=== PATIENT | male | born 1935 | race Caucasian/White ===

== ENCOUNTER 2018-04-15 16:45 | Emergency (ER) | payer MEDICARE, BC ==
[~2018-04-15] VITALS: Ht 175.3 cm; Wt 85.0 kg
[2018-04-15 16:52] VITALS: BP 197/109; PULSE 70; RESP 22; TEMP 97.6; O2SAT 96
[2018-04-15] MEDS ORDERED: LEVO25TA4 PO (17:13)
[2018-04-15] MEDS ORDERED: SIMV5TAB3 PO (17:13)
[2018-04-15] MEDS ORDERED: blood pressure med (17:13)
[2018-04-15] MEDS ORDERED: BUPR75TA PO (17:13)
--- NOTE | 2018-04-15 17:15 | PD ---
HPI Chief Complaint: Respiratory Symptoms Time Seen by Provider: 16:58 Travel History International Travel<30 days: No Contact w/Intl Traveler<30days: No Traveled to known affect area: No History of Present Illness HPI 82 y/o male presents with coughing up blood today. He states he has had a couple episodes of about quarter size amount. He denies prior history of this. He states that he is visiting from [place]. He denies any associated symptoms. Quality is bright red. Severity is couple episodes. He denies specific modifying factors. PFSH Past Medical History Narrative Medical Hypertension, hypercholesterol, prostate cancer in remission Past Surgical History Narrative Surgical Prostate cancer Social History Tobacco Use: No Allergies-Medications (Allergen,Severity, Reaction): Coded Allergies: No Known Allergies (Unverified , 04/15/18) Reported Meds & Prescriptions Reported Meds & Active Scripts Active Reported Bupropion HCl 75 Mg Tab Unknown Dose PO BID [blood pressure med] Simvastatin 5 Mg Tab Unknown Dose PO DAILY Levothyroxine (Levothyroxine Sodium) 25 Mcg Tab Unknown Dose PO DAILY Review of Systems Except as stated in HPI: all other systems reviewed are Neg Physical Exam Narrative GENERAL: 82-year-old male in no apparent distress SKIN: Focused skin assessment warm/dry. HEAD: Atraumatic. Normocephalic. EYES: Pupils equal and round. No scleral icterus. No injection or drainage. ENT: No nasal bleeding or discharge. Mucous membranes pink and moist. NECK: Trachea midline. No JVD. CARDIOVASCULAR: Regular rate and rhythm. No murmur appreciated. RESPIRATORY: No accessory muscle use. Clear to auscultation. Breath sounds equal bilaterally. GASTROINTESTINAL: Abdomen soft, non-tender, nondistended. Hepatic and splenic margins not palpable. MUSCULOSKELETAL: No obvious deformities. No clubbing. No cyanosis. No edema. NEUROLOGICAL: Awake and alert. No obvious cranial nerve deficits. Motor grossly within normal limits. Normal speech. PSYCHIATRIC: Appropriate mood and affect; insight and judgment normal. Data Data Last Documented VS Vital Signs Date Time Temp Pulse Resp B/P (MAP) Pulse Ox O2 Delivery O2 Flow Rate FiO2 04/15/18 16:52 97.6 70 22 197/109 (138) 96 Orders Orders Complete Blood Count With Diff (04/15/18 16:58) Basic Metabolic Panel (Bmp) (04/15/18 16:58) Act Partial Throm Time (Ptt) (04/15/18 16:58) Prothrombin Time / Inr (Pt) (04/15/18 16:58) Iv Access Insert/Monitor (04/15/18 16:58) Ecg Monitoring (04/15/18 16:58) Oximetry (04/15/18 16:58) Chest, Pa & Lat (04/15/18 16:58) Ct Pulmonary Angiogram (04/15/18 ) Iohexol 350 Inj (Omnipaque 350 Inj) (04/15/18 18:52) Ed Discharge Order (04/15/18 19:01) Labs Laboratory Tests Test 04/15/18 17:15 White Blood Count 8.7 TH/MM3 Red Blood Count 4.95 MIL/MM3 Hemoglobin 15.3 GM/DL Hematocrit 45.3 % Mean Corpuscular Volume 91.4 FL Mean Corpuscular Hemoglobin 30.9 PG Mean Corpuscular Hemoglobin Concent 33.8 % Red Cell Distribution Width 13.9 % Platelet Count 292 TH/MM3 Mean Platelet Volume 8.8 FL Neutrophils (%) (Auto) 74.2 % Lymphocytes (%) (Auto) 14.2 % Monocytes (%) (Auto) 8.8 % Eosinophils (%) (Auto) 2.1 % Basophils (%) (Auto) 0.7 % Neutrophils # (Auto) 6.5 TH/MM3 Lymphocytes # (Auto) 1.2 TH/MM3 Monocytes # (Auto) 0.8 TH/MM3 Eosinophils # (Auto) 0.2 TH/MM3 Basophils # (Auto) 0.1 TH/MM3 CBC Comment DIFF FINAL Differential Comment Prothrombin Time 10.0 SEC Prothromb Time International Ratio 1.0 RATIO Activated Partial Thromboplast Time 27.6 SEC Blood Urea Nitrogen 20 MG/DL Creatinine 1.04 MG/DL Random Glucose 93 MG/DL Calcium Level 8.5 MG/DL Sodium Level 139 MEQ/L Potassium Level 4.1 MEQ/L Chloride Level 103 MEQ/L Carbon Dioxide Level 27.6 MEQ/L Anion Gap 8 MEQ/L Estimat Glomerular Filtration Rate 68 ML/MIN MDM Medical Decision Making Medical Screen Exam Complete: Yes Emergency Medical Condition: Yes Medical Record Reviewed: Yes (Past history confirmed) Interpretation(s) CBC & BMP Diagram 04/15/18 17:15 Calcium Level 8.5 Last 24 hours Impressions Chest X-Ray 04/15/18 1658 Signed Impressions: CONCLUSION: No acute cardiopulmonary findings identified. CT Angiography 04/15/18 0000 Signed Impressions: CONCLUSION: 1. No evidence of pulmonary embolism. 2. Nonspecific 3 mm pulmonary nodule posterior right upper lung. Recommend a f ollow-up noncontrast CT thorax in 6 months to check stability. Differential Diagnosis PE, pneumonia, bronchiectasis Narrative Course We will check blood work, chest x-ray, CT and reevaluate ED workup no emergent, patient given copy of CT report for outpatient pulmonary nodule follow-up. No further hemoptysis here. Patient denies any new complaints and states that they are feeling better. Patient happy with care, all questions answered. Patient knows that follow up is incumbent on them and to return to the emergency room immediately if new or worsening symptoms develop. Patient given strict return precautions, vitals reviewed and are normal , agrees to further workup as an outpatient. Diagnosis Primary Impression: Hemoptysis Additional Impression: Pulmonary nodule Patient Instructions: General Instructions Additional Instructions: return as needed, follow with primary this week Med/Other Pt SpecificInfo: No Change to Meds Disposition: 01 DISCHARGE HOME Condition: Stable Annette Jacob MD April 15, 2018 17:15
[2018-04-15 17:45] LABS: AUTOMATED NEUTROPHIL # 6.5 TH/MM3 (1.8-7.7); BASOPHIL # 0.1 TH/MM3 (0-0.2); BASOPHIL % 0.7 % (0.0-2.0); EOSINOPHIL # 0.2 TH/MM3 (0-0.4); EOSINOPHIL % 2.1 % (0.0-4.0); HEMATOCRIT 45.3 % (39.0-51.0); HEMOGLOBIN 15.3 GM/DL (13.0-17.0); LYMPH % 14.2 % (9.0-44.0); LYMPHOCYTE # 1.2 TH/MM3 (1.0-4.8); MEAN CELL VOLUME 91.4 FL (80.0-100.0); MEAN CORPUSCULAR HEMOGLOBIN 30.9 PG (27.0-34.0); MEAN CORPUSCULAR HGB CONC 33.8 % (32.0-36.0); MEAN PLATELET VOLUME 8.8 FL (7.0-11.0); MONO % 8.8 % (0.0-8.0); MONOCYTE # 0.8 TH/MM3 (0-0.9); NEUT % 74.2 % (16.0-70.0); PLATELET COUNT 292 TH/MM3 (150-450); RED BLOOD COUNT 4.95 MIL/MM3 (4.50-5.90); RED CELL DISTRIBUTION WIDTH 13.9 % (11.6-17.2); WHITE BLOOD COUNT 8.7 TH/MM3 (4.0-11.0)
--- NOTE | 2018-04-15 17:58 | RADRPT ---
EXAM DATE: 04/15/2018 5:44 PM EDT AGE/SEX: 82 years / Male INDICATIONS: Coughing blood. Short of breath. CLINICAL DATA: This is the patient's initial encounter. Patient reports that signs and symptoms have been present for 1 day and indicates a pain score of 3/10. MEDICAL/SURGICAL HISTORY: None. None. COMPARISON: No prior [place] exams available for comparison. FINDINGS: PA and lateral views of the chest demonstrate the lungs to be symmetrically aerated without evidence of mass, infiltrate or effusion. The cardiomediastinal contours are unremarkable. Osseous structures are intact. CONCLUSION: No acute cardiopulmonary findings identified. Electronically signed by: David Meza MD 04/15/2018 5:56 PM EDT
[2018-04-15 18:04] LABS: BICARBONATE 27.6 MEQ/L (21.0-32.0); CALCIUM 8.5 MG/DL (8.5-10.1); CREATININE 1.04 MG/DL (0.60-1.30)
[2018-04-15] MEDS ORDERED: IOHEXOL 350 MG/ML 10 ML VIAL (for RAD DIAG) IVCONTRAST ONE (18:52)
--- NOTE | 2018-04-15 18:58 | RADRPT ---
EXAM DATE: 04/15/2018 6:53 PM EDT AGE/SEX: 82 years / Male INDICATIONS: Coughing up blood. CLINICAL DATA: This is the patient's initial encounter. Patient reports that signs and symptoms have been present for 1 day and indicates a pain score of 2/10. MEDICAL/SURGICAL HISTORY: None. None. RADIATION DOSE: 9.97 CTDI (mGy) COMPARISON: No prior [place] exams available for comparison. TECHNIQUE: Volumetric scanning was performed using a multi-row detector CT scanner during bolus infu earnest of 73 ml Omnipaque 350 (iohexol) nonionic water-soluble contrast as a single exam dose. The maikel a was post processed with a variety of visualization algorithms including full volume maximum intensi ty projection and sliding thin slab reformation. Using automated exposure control and adjustment of the mA and/or kV according to patient size, radiation dose was kept as low as reasonably achievable t o obtain optimal diagnostic quality images. FINDINGS: Pulmonary Arteries: No filling defects are seen in the pulmonary arteries out to the subsegmental ve ssels. The left and right pulmonary arteries are normal in diameter. Lung: No infiltrates seen. There is a tiny 3 mm pulmonary nodule in the posterior right upper lung. Effusion: None. Mediastinum: No evidence of mediastinal or hilar adenopathy. Other: The axilla is unremarkable. There is a gallstone in the gallbladder. CONCLUSION: 1. No evidence of pulmonary embolism. 2. Nonspecific 3 mm pulmonary nodule posterior right upper lung. Recommend a follow-up noncontrast C T thorax in 6 months to check stability. Electronically signed by: Jose Duque MD 04/15/2018 6:56 PM EDT
== END 2018-04-15 19:19 | disposition home or self-care (01) ==
LOC: NEPE 16:45
DX: R04.2 Hemoptysis (principal); R91.1 Solitary pulmonary nodule; Z85.46 Personal history of malignant neoplasm of prostate
CPT/HCPCS: 71046; 71275; 80048; 85025; 85610; 85730; 99285; Q9967